=== PATIENT | male | born 1960 | race Caucasian/White ===

== ENCOUNTER → 2017-03-08 | Outpatient (CLI) | payer OTHER | LOC: CARD 10:54 | PROVIDERS: ATTEND Nurse Practitioner Family | DX: R07.89 Other chest pain (principal); R06.09 Other forms of dyspnea; I73.9 Peripheral vascular disease, unspecified | CPT/HCPCS: 93306; 93923 ==

== ENCOUNTER → 2018-04-28 | Outpatient (CLI) | payer OTHER | LOC: RAD 10:21 | PROVIDERS: ATTEND Nurse Practitioner | DX: S83.242A Other tear of medial meniscus, current injury, left knee, initial encounter (principal); Z53.8 Procedure and treatment not carried out for other reasons ==

== ENCOUNTER → 2021-06-23 | Outpatient (CLI) | payer SELFPAY ==
--- NOTE | 2021-06-23 14:50 | Diagnostic Imaging Report ---
PROCEDURE: CT urinary tract, rule out kidney stone. TECHNIQUE: Multiple contiguous axial images were obtained through the abdomen and pelvis without the use of intravenous contrast. Auto Exposure Controls were utilized during the CT exam to meet ALARA standards for radiation dose reduction. INDICATION: Jaundice, abdominal pain radiating into the back. No prior studies are available for comparison. The lung bases are clear. The liver and gallbladder are unremarkable. There is no biliary ductal dilatation. The pancreas and spleen are unremarkable. No adrenal mass is detected. The right kidney is unremarkable. There is a 2 mm nonobstructing calculus in the upper pole of the left kidney. No definite ureteral calculi or hydronephrosis is identified. Bladder is unremarkable. Prostate is unremarkable. Aorta is nonaneurysmal. There is an umbilical hernia containing a small bowel loop. No strangulation or evidence of bowel obstruction is identified. There is no free fluid or fluid collection identified. IMPRESSION: 1. Tiny nonobstructing left renal calculus. 2. Small bowel containing umbilical hernia without evidence of strangulation or bowel obstruction. Dictated by: Dictated on workstation # [id number]
== END ==
LOC: RAD 14:15
PROVIDERS: ATTEND Nurse Practitioner Family
DX: N20.0 Calculus of kidney (principal); K42.9 Umbilical hernia without obstruction or gangrene; R17 Unspecified jaundice
CPT/HCPCS: 74176

== ENCOUNTER → 2022-02-11 | Outpatient (CLI) | payer OTHER ==
--- NOTE | 2022-02-11 11:07 | Diagnostic Imaging Report ---
Indication: Low back pain Lumbar spine AP lateral views of lumbar spine shows diffuse spondylosis with slight disc space narrowing of the disc spaces and osteophytes forming circumferentially from L2 to S1. There is no malalignment. IMPRESSION: Spondylosis deformans. No acute abnormality seen. Dictated by: Dictated on workstation # [id number]
--- NOTE | 2022-02-11 11:09 | Diagnostic Imaging Report ---
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 Tibiofemoral joint spaces and patellofemoral joint spaces well-maintained. There is no fracture or dislocation. IMPRESSION: Tripartite patella Dictated by: Dictated on workstation # [id number]
== END ==
LOC: RAD 10:32
PROVIDERS: ATTEND Family Medicine
DX: M47.816 Spondylosis without myelopathy or radiculopathy, lumbar region (principal); M25.562 Pain in left knee
CPT/HCPCS: 72100; 73560